=== PATIENT | female | born 1985 | race Caucasian/White ===

== ENCOUNTER 2018-03-19 02:48 | Inpatient (IN) ==
[2018-03-19 00:21] LABS: Amphetamine Screen,Urine Negative ng/mL (Cutoff=1000); Barbiturate Screen,Urine Negative ng/mL (Cutoff=200); Benzodiazepines Screen,Urine Negative ng/mL (Cutoff=200); Cannabinoid Screen,Urine Negative ng/mL (Cutoff = 50); Cocaine Screen,Urine Negative ng/mL (Cutoff= 300); Opiate Screen,Urine Negative ng/mL (Cutoff=300); Phencyclidine Screen,Urine Negative ng/mL (Cutoff=25)
[~2018-03-19 02:48] MED LIST: *HR* Nalbuphine 10 MG/ML AMPUL IVP PRN; Famotidine 20 MG/2 ML VIAL IVP PRN; Naloxone 0.4 MG/ML INJ IVP PRN; Ringers Solution, Lactated 1,000 ML IVC SCH; Ringers Solution, Lactated 1,000 ML ONE
[2018-03-19 02:54] LABS: Basophils # 0.1 K/mcL (0.0-0.2); Basophils % 0.5 %; Eosinophils # 0.2 K/mcL (0.0-0.6); Eosinophils % 1.4 %; Hematocrit 40.7 % (35.3-44.9); Hemoglobin 13.7 g/dL (11.5-15.4); Immature Granulocytes % 0.6 % (0-4); Immature Platelets 3.9 % (1.1-6.1); Lymphocytes # 2.9 K/mcL (0.6-4.6); Lymphocytes % 17.1 %; Mean Corpuscular HGB Conc 33.7 g/dL (31.6-35.5); Mean Corpuscular Hemoglobin 29.2 pg (28.0-33.3); Mean Corpuscular Volume 86.8 fL (83.0-100.0); Mean Platelet Volume 10.2 fL (9.4-12.4); Monocytes # 1.1 K/mcL (0.0-1.3); Monocytes % 6.4 %; Neutrophils # 12.6 K/mcL (1.6-8.9); Platelet Count 285 K/mcL (140-400); Red Blood Count 4.69 M/mcL (3.82-4.97); Red Cell Distribution Width 13.9 % (11.5-14.5)
[2018-03-19] MEDS ORDERED: Ondansetron 4 MG/2 ML VIAL IVP PRN (03:25)
[2018-03-19] MEDS ORDERED: Metoclopramide 10 MG/2 ML VIAL IVP PRN (03:25)
[2018-03-19] MEDS ORDERED: *HR* FentaNYL (PF) 100 MCG/2 ML VIAL EP ONE (03:28)
[2018-03-19] MEDS ORDERED: Bupivacaine-MPF 0.25% 10 ML VIAL EP ONE (03:28)
[2018-03-19] MEDS ORDERED: Epidural Premix (fent/bupiv) 110 ML EP SCH (03:30)
[2018-03-19] MEDS ORDERED: *HR* FentaNYL (PF) 100 MCG/2 ML VIAL ONE (03:34)
[2018-03-19] MEDS ORDERED: Lidocaine -MPF 2% 5 ML VIAL ONE (03:34)
[2018-03-19] MEDS ORDERED: Bupivacaine-MPF 0.25% 10 ML VIAL ONE (03:34)
[2018-03-19] MEDS ORDERED: Oxytocin 20 units/ LR 1000 mL 20 UNIT/1,000 ML BAG IVC ONE ×3 (04:17→09:05)
--- NOTE | 2018-03-19 04:22 | Anesthesia Evaluation PreOp ---
Date of Encounter: 03/19/18 Time of Encounter: 03:36 - Past History Planned Operation: labor epidural Cardiac History: Denies any Significant Hx Pulmonary History: Smoker (smokes 1/2 ppd for 30 years.), Asthma (uses inhaler. Is well-controlled, no recent attacks.) [facility] History: Denies Any Significant HX Other Medical History: Hepatic (hep C positive, history IV drug use.), Other (morbid obesity, BMI 41.) Anesthesia History: No Prior Anesthetic Complications, Past Anesthesia (wisdom teeth extracted, no problems. Previous epidural X1. States was one-sided, had to redo, BP dropped significantly. No FHAP.) Alcohol Use: none Drug use: IV Drug Use Medications and Allergies Benadryl 11/07/17 [History] Pepcid 11/07/17 [History] #103/Iron Fumarate/FA 1 tab PO DAILY 11/07/17 [History] Albuterol Sulfate [Albuterol Inhaler] 2 puff IH Q4HR PRN #1 hfa.aer.ad 01/26/18 [Rx] Colace 01/26/18 [History] Allergy/AdvReac Type Severity Reaction Status Date / Time Penicillins [PCN] AdvReac Nausea Verified 11/07/17 12:55 - Meds/Allergy Pre-op Review Medications Reviewed: Yes Allergies Reviewed: Yes Beta Blockers on Current Med List: No Anesthesia Results - Labs 03/19/18 02:38 Anesthesia Exam 122/77, 90, 20. FHTs 130s. Height: 5'7" Weight: 118kg NPO (# of Hours): 4 Pain Scale: 9 Pain Scale Used: Numeric (1 - 10) - HEENT Pupil (Motor): Pupils equal Mallampati: II Teeth: Normal Oral Opening: Greater than 3 - [facility] LOC: Oriented [facility] Motor: Normal RUE, Normal LUE, Normal RLE, Normal LLE, Normal Face [facility] Sensory: Normal: RUE, LUE, RLE, LLE, Face - Cardiac Rhythm: Regular - Pulmonary Breath Sounds: bilateral Clear Respiratory Effort: Symmetrical Anesthesia Assess/Plan ASA Score: 3 Level of consciousness: Cooperative, Oriented, Tranquil Anesthetic Plan: Epidural Monitoring Plan: Standard Monitors
--- NOTE | 2018-03-19 04:29 | Anesthesia Procedures ---
Addendum entered and electronically signed by Yuliana Funez CRNA 03/19/18 06:47: Delivery time 05 Original Note: Delivery - Delivery Date: Original Note: Date of Encounter: 03/19/18 Time of Encounter: 03:45 Procedures: Anesthesia - Epidural/Spinal Patient ID/Chart reviewed: Yes Patient examined: Yes OB Eval: : 2 OB Eval: Hx Para: 1 OB Eval: Contractions: Non-stressed pattern Consent Obtained: Yes Supplemental Oxygen: None/Room Air Site Prep: Aseptic Technique, Sterile prep and drape, Povidone-Iodine 1% Patient position: upright Local Anesthetic: Lidocaine 1% Amount of Local Anesthetic used: 5 Touhy Needle Gauge: 18 Touhy Needle Depth (cm): 8 Catheter Depth at Skin (cm): 18 Test Dose (1.5% Lido + Epi): Volume given (mls): 3 Test Dose Result: Negative Loading Dose: 0.25% Marcaine (mls): 8 Loading Dose: Fentanyl (mcg): 100 Loading Dose Administered: Thru Catheter Infusion Med: 0.125% Bupivacaine w/ 2 mcg/ml Fentanyl Infusion Rate (mls/hr): [address]: Tegaderm, Tape Interspace Used: L3-L4 Loss of Resistance (JORGE): Yes Blood: No CSF: No Paresthesia: No Vitals + FHT's: Vital Signs Time 0345 0358 0400 0405 0410 BP 122/77 155/74 142/83 139/62 131/59 Pulse 90 100 85 87 101 FHTs 130 130 130 130 130
--- NOTE | 2018-03-19 04:46 | OB/GYN History & Physical ---
Date of Encounter: 03/19/18 Time of Encounter: 04:36 Assessment and Plan (1) 39 weeks gestation of Current visit: Yes Status: Acute Admitted for labor Epidural when patient desires Pitocin augmentation if needed Anticipate (2) NST (non-stress test) reactive Current visit: Yes Status: Acute FRH 130 bpm, moderate variability, +15x15 accels, no decels. (3) Hepatitis C Current visit: Yes Status: Acute Follow-up with primary care provider . Qualifiers: Viral hepatitis chronicity: chronic Hepatic coma status: without hepatic coma Qualified Code(s): B18.2 - Chronic viral hepatitis C (4) Rh negative status during in third trimester Current visit: Yes Status: Acute (5) Meconium in amniotic fluid affecting management of mother in third trimester Current visit: Yes Status: Acute Moderate meconium noted with AROM. Nursery to attend delivery. Qualifiers: Fetus number: single or unspecified fetus Qualified Code(s): O36.8930 - Maternal care for other specified problems, third trimester, not xochilt licable or unspecified History of Present Illness Chief complaint: Labor HPI: Ms. Arango is a 32 year old female at 39 weeks and 2 days who arrives with complaints of contractions and possible fluid leakage. Her nitrazine was negative. Over the course of to 3 hours she made change from 4 cm to 6 cm therefore was admitted for labor. She endorses good movement and denies bleeding. Her has been uncomplicated but she did have positive HPV. She will be scheduled for a colposcopy . She is positive for hepatitis C and is a previous amphetamine drug user. She reports her last use was 4 months ago. Her tox screen is negative on admission. She has been seeing Rebecca Kelley throughout her . Blood type B negative GBS negative T Pall negative HBsAg negative rubella immune Varicella immune Hepatitis C positive. Viral load on 02/28/2018 was 11,354 Past Med Surg Social Fam HX - Past Medical History Medical history: non-contributory Additional medical history: HPV, Hep C Psychiatric history: anxiety, depression, PTSD - Past Surgical History Surgical History: other - Social History Smoking Status: Current every day smoker Packs per day: 1/2 Smokeless Tobacco Status: No Alcohol use: none Drug use: IV Drug Use - Family History Father Hx Family Endocrine Disorder: Yes (DM) Obstetrical History - Pregnancies : 2 Para: 1 Term: 0 : 0 Ab's: 0 Livin Medications and Allergies Benadryl 11/07/17 [History] Pepcid 11/07/17 [History] #103/Iron Fumarate/FA 1 tab PO DAILY 11/07/17 [History] Albuterol Sulfate [Albuterol Inhaler] 2 puff IH Q4HR PRN #1 hfa.aer.ad 01/26/18 [Rx] Colace 01/26/18 [History] Allergy/AdvReac Type Severity Reaction Status Date / Time Penicillins [PCN] AdvReac Nausea Verified 11/07/17 12:55 Exam - Constitutional Constitutional: well developed, well nourished - Neck Neck exam: full ROM, normal inspection - Lungs Respiratory exam: CTAB - Cardiovascular Cardiovascular exam: RRR, +S1, +S2 - Breasts Breast: bilateral: normal - Abdomen Abdomen: Present: bowel sounds normal, gravid, non tender - Extremities Extremities exam: full ROM, normal capillary refill, normal inspection, pedal edema - Vulva Vulva: bilateral: normal - Vagina Vagina: Present: normal moisture - Cervix Dilation: 8 Effacement: 90 Station: -1 - Uterus Uterus exam: Present: normal size - Anus/Rectum Anus/Rectum: Present: normal perianal skin Results Result Diagrams: 03/19/18 02:38 Abnormal lab results WBC 17.1 K/mcL (4.3-11.1) H 03/19/18 02:38 Neutrophils # 12.6 K/mcL (1.6-8.9) H 03/19/18 02:38 All other labs normal. - VTE Reasons for not Prescribing Prophylaxis: Treatment not Indicated - Low risk for VTE
[2018-03-19] MEDS ORDERED: Benzocaine/Menthol 56 GM AEROSOL SPRAY TP PRN (05:58)
--- NOTE | 2018-03-19 06:03 | OB/GYN Procedure Note ---
Delivery - Delivery Date: 03/19/18 Provider: Khushboo Escobar (Dr. Gardner in room for proctoring) Intrapartum events: meconium Delivery induction: none Delivery augmentation: rupture of membranes Delivery monitor: external FHT, external uterine Anesthesia: epidural Quantitated Blood Loss: 100 - (s) A Delivery Date: 03/19/18 Presentation: vertex Position: SANDRITA Route of delivery: Gender: Male Viability: Viable Pounds: 9 Ounces: 4 Weight Gram: 4190 kg at 1 minute: 8 at 5 mins: 9 Shoulder Dystocia: not encountered Specimens collected: cord blood Placenta: spontaneous, uterine exploration, retained (membranes, removed by Dr. Gardner) Cord: 3 umbilical vessels - Repair Episiotomy: none Laceration Description: Periurethral (Right), Perineal - 1st Degree - Complications Delivery complications: none Delivery comments: Called to room for patient feeling pressure in variable decelerations noted on monitor. Patient found to be complete and +1 station. Patient was prepped for delivery. Under maternal effort, spontaneous delivery of viable male over first-degree laceration, repaired with 3-0 Vicryl, right periurethral laceration noted, not bleeding therefore not repaired. Infant placed on maternal abdomen for drying and stimulation. Cord clamped and cut by FOB after pulsation ceased. Spontaneous delivery of placenta with trailing membranes. Manual exploration of the uterus produced a small piece of membranes. Fundus was firm bleeding was moderate, EBL 100 mL's. No nuchal cord or shoulder dystocia encountered. Moderate meconium fluid was noted. Mother and able in kangaroo care for [address] Gardner in room for entirety of delivery for proctoring and performed manual exploration of the uterus. - Disposition Mom disposition: stable in LDR disposition: stable in LDR
[2018-03-19] MEDS ORDERED: Acetaminophen 325 MG TABLET PO PRN (09:05)
[2018-03-19] MEDS ORDERED: Measles/Mumps/Rubella Vacc 0.5 ML VIAL SQ PRN (09:05)
[2018-03-19] MEDS ORDERED: Oxytocin 20 units/ LR 1000 mL 20 UNIT/1,000 ML BAG IVC SCH (09:05)
[2018-03-19] MEDS ORDERED: Prenatal Vit/FA 1 EACH TABLET PO SCH (09:05)
[2018-03-19] MEDS: Ibuprofen 600 MG TABLET PO PRN ×2 (12:56→23:29)
[2018-03-19] MEDS ORDERED: Rho Immune Globulin 1,500 UNIT SYRINGE IM ONE (17:42)
[2018-03-20 07:45] VITALS: BP 94/60
[2018-03-20] MEDS: Ibuprofen 600 MG TABLET PO PRN (10:01)
--- NOTE | 2018-03-20 10:07 | Discharge Summary ---
Date of Encounter: 03/20/18 Time of Encounter: 10:05 - Discharge Diagnosis (1) Vaginal delivery Priority: Primary Status: Acute Comments: discharge home today follow up with OB provider in 4-6 weeks - Discharge Medications Prescriptions: Ibuprofen [Motrin] 600 mg PO Q6HR PRN #60 tablet PRN Reason: Cramping Home Medications: Ibuprofen [Motrin] 600 mg PO Q6HR PRN #60 tablet 03/20/18 [Rx] Vit/FA 1 each PO DAILY tablet 03/20/18 [Rx] Allergies/Adverse Reactions: Allergy/AdvReac Type Severity Reaction Status Date / Time Penicillins [PCN] AdvReac Nausea Verified 11/07/17 12:55 Data Procedures and tests throughout hospitalization: Laboratory Tests 03/18/18 03/19/18 03/19/18 23:45 02:38 06:05 WBC 17.1 H RBC 4.69 Hgb 13.7 Hct 40.7 MCV 86.8 MCH 29.2 MCHC 33.7 RDW 13.9 Plt Count 285 MPV 10.2 Immature Gran % 0.6 Seg Neutrophils % 74.0 Lymphocytes % 17.1 Monocytes % 6.4 Eosinophils % 1.4 Basophils % 0.5 Neutrophils # 12.6 H Lymphocytes # 2.9 Monocytes # 1.1 Eosinophils # 0.2 Basophils # 0.1 Immature Plt Fraction 3.9 Urine Opiates Screen Negative Ur Barbiturates Screen Negative Ur Phencyclidine Scrn Negative Ur Amphetamines Screen Negative U Benzodiazepines Scrn Negative Urine Cocaine Screen Negative U Marijuana (THC) Screen Negative Ur Drug Screen Interp See Below Screen NEGATIVE Baby's Blood Type AB RH POSITIVE Mother's Blood Type B RH NEGATIVE Rhogam Indicated YES Rhogam Req for Mother 1 Labs on day of discharge: Labs from last 24 hours 03/19/18 06:05 Screen NEGATIVE Rhogam Req for Mother 1 Date of admission: 03/19/18 04:52 Primary care physician: PCP NONE Consults: 03/19/18 09:05 Consult to Home Performance Laborer [CONS] Routine Comment: Vaginal delivery, consult needed Consult to [employer] Operator [CONS] Routine Reason for SW Consult: h/o meth amphetamine use Discharging clinician: Katie Luna Anticipated date of discharge: 03/20/18 - Patient Status Disposition: Home, Self-Care Condition: Good Functional capacity at discharge: independent ambulation - Discharge Instructions Follow Up With: NONE,PCP [Primary Care Provider] - Alireza Blue MD [Partnered Physician] - - Diet and Activity Activity: increase activity as tolerated Diet: regular diet Hospital Course Delivery: Episiotomy: none Other procedures: none complications: none, other (retained membanes manually removed by Dr. Gardner) Discharge diagnosis: IUP at term delivered [place] baby: male (bottle feeding) Time Attestation: Total time spent providing and/or coordinating discharge services: Time Spent: Less than 30 minutes Exam - Constitutional Vitals: Temp Pulse Resp BP Pulse Ox 97.6 F 78 14 94/60 96 03/20/18 07:43 03/20/18 07:43 03/20/18 07:43 03/20/18 07:43 03/20/18 07:43 General appearance IM: A&O X 3, pleasant, answers questions appropriately - Respiratory Respiratory exam: Present: CTAB - Cardiovascular Cardiovascular exam IM: Present: RRR, +S1, +S2 - GI/Abdominal GI/Abdominal exam IM: normal bowel sounds - Uterine Tone: Firm Uterus Position: 1 Finger Below Umbilicus, Midline - Extremities Exam Extremities exam IM: Present: full ROM, normal capillary refill, normal inspection - Neurological Exam Neurological exam: alert, oriented X3, reflexes normal
[2018-03-20] MEDS ORDERED: Benzocaine/Menthol 56 GM AEROSOL SPRAY TP PRN (10:10)
== END 2018-03-20 10:44 | disposition home or self-care (01) | DRG 560 ==
LOC: 1NENULAB → 1NENUOBS 08:32
PROVIDERS: ADMIT Registered Nurse; ATTEND Registered Nurse

== ENCOUNTER → 2020-08-17 18:50 | Observation (INO) | END | disposition home or self-care (01) | LOC: 1NENULAB | PROVIDERS: ADMIT Obstetrics & Gynecology; ATTEND Obstetrics & Gynecology ==

== ENCOUNTER 2020-09-02 05:54 | Inpatient (IN) ==
[2020-09-02] MEDS ORDERED: Ringers Solution, Lactated 1,000 ML ONE (07:03)
[2020-09-02] MEDS ORDERED: EPHEDrine 50 MG/ML VIAL IVP PRN (07:10)
[2020-09-02] MEDS ORDERED: Epidural Premix (fent/bupiv) 110 ML EP SCH (07:15)
[2020-09-02] MEDS ORDERED: Metoclopramide 10 MG/2 ML VIAL IVP PRN (07:16)
[2020-09-02] MEDS ORDERED: Famotidine 20 MG/2 ML VIAL IVP PRN (07:16)
[2020-09-02] MEDS ORDERED: Naloxone 0.4 MG/ML INJ IVP PRN (07:16)
[2020-09-02] MEDS ORDERED: Ringers Solution, Lactated 1,000 ML IVC SCH (07:30)
[2020-09-02] MEDS ORDERED: Oxytocin 20 units/ LR 1000 mL 20 UNIT/1,000 ML BAG IVC SCH ×2 (07:30→15:04)
[2020-09-02 07:37] LABS: Basophils # 0.1 K/mcL (0.0-0.2); Basophils % 0.5 %; Eosinophils # 0.4 K/mcL (0.0-0.6); Eosinophils % 2.8 %; Hematocrit 38.2 % (35.3-44.9); Hemoglobin 12.3 g/dL (11.5-15.4); Immature Granulocytes % 0.5 % (0-4); Lymphocytes # 2.8 K/mcL (0.6-4.6); Lymphocytes % 19.1 %; Mean Corpuscular HGB Conc 32.2 g/dL (31.6-35.5); Mean Corpuscular Hemoglobin 29.6 pg (28.0-33.3); Mean Platelet Volume 10.9 fL (9.4-12.4); Monocytes # 0.9 K/mcL (0.0-1.3); Monocytes % 6.1 %; Neutrophils # 10.5 K/mcL (1.6-8.9); Platelet Count 273 K/mcL (140-400); Red Blood Count 4.15 M/mcL (3.82-4.97); Red Cell Distribution Width 13.1 % (11.5-14.5); White Blood Count 14.8 K/mcL (4.3-11.1)
[2020-09-02] MEDS ORDERED: Vancomycin 2,000 MG/520 ML IV.SOLN IVPB SCH (08:00)
[2020-09-02 11:46] LABS: Amphetamine Screen,Urine Negative ng/mL (Cutoff=1000); Barbiturate Screen,Urine Negative ng/mL (Cutoff=200); Benzodiazepines Screen,Urine Negative ng/mL (Cutoff=200); Cannabinoid Screen,Urine Negative ng/mL (Cutoff = 50); Cocaine Screen,Urine Negative ng/mL (Cutoff= 300); Opiate Screen,Urine Negative ng/mL (Cutoff=300); Phencyclidine Screen,Urine Negative ng/mL (Cutoff=25)
[2020-09-02] MEDS ORDERED: Acetaminophen 325 MG TABLET PO PRN (15:04)
[2020-09-02] MEDS ORDERED: Rho Immune Globulin 1,500 UNIT SYRINGE IM PRN (15:04)
[2020-09-02] MEDS ORDERED: Measles/Mumps/Rubella Vacc 0.5 ML VIAL SQ PRN (15:04)
[2020-09-02 16:13] LABS: Creatinine,Urine 89 mg/dL; Protein/Creatinine Ratio,Urine 0.19 mg/mg (0.00-0.20)
[2020-09-02 16:30] LABS: Alanine Aminotransferase 21 Units/L (7-52); Aspartate Amino Transferase 17 Units/L (13-39); BUN/Creatinine Ratio 20 (6-26); Blood Urea Nitrogen 9 mg/dL (6-20); Lactate Dehydrogenase 142 Units/L (140-271); Uric Acid 4.3 mg/dL (2.3-7.6); eGFR For African Americans > 60 (> 60); eGFR For Non-African Americans > 60 (> 60)
[2020-09-02] MEDS: FLUoxetine 20 MG CAPSULE PO SCH (17:51)
[2020-09-02] MEDS: Ibuprofen 600 MG TABLET PO PRN (18:04)
[2020-09-03] MEDS: Ibuprofen 600 MG TABLET PO PRN ×3 (04:41→17:54)
[2020-09-03 04:50] LABS: Basophils # 0.1 K/mcL (0.0-0.2); Basophils % 0.6 %; Eosinophils # 0.5 K/mcL (0.0-0.6); Eosinophils % 2.8 %; Hematocrit 32.3 % (35.3-44.9); Immature Granulocytes % 0.6 % (0-4); Lymphocytes # 3.3 K/mcL (0.6-4.6); Lymphocytes % 20.4 %; Mean Corpuscular HGB Conc 32.5 g/dL (31.6-35.5); Mean Corpuscular Hemoglobin 29.7 pg (28.0-33.3); Mean Corpuscular Volume 91.2 fL (83.0-100.0); Mean Platelet Volume 10.4 fL (9.4-12.4); Monocytes # 1.1 K/mcL (0.0-1.3); Monocytes % 6.5 %; Neutrophils # 11.2 K/mcL (1.6-8.9); Platelet Count 268 K/mcL (140-400); Red Blood Count 3.54 M/mcL (3.82-4.97); Segmented Neutrophils % 69.1 %; White Blood Count 16.3 K/mcL (4.3-11.1)
[2020-09-03 04:53] LABS: Hemoglobin 10.5 g/dL (11.5-15.4)
[2020-09-03] MEDS: Prenatal Vit/FA 1 EACH TABLET PO SCH (07:43)
[2020-09-03] MEDS: FLUoxetine 20 MG CAPSULE PO SCH (17:55)
[2020-09-04] MEDS: Prenatal Vit/FA 1 EACH TABLET PO SCH (07:26)
[2020-09-04] MEDS: Ibuprofen 600 MG TABLET PO PRN (07:26)
[2020-09-04 08:38] VITALS: BP 130/73
== END 2020-09-04 09:47 | disposition home or self-care (01) | DRG 560 ==
LOC: 1NENULAB 05:54 → 1NENUOBS 17:01
PROVIDERS: ADMIT Student in an Organized Health Care Education/Training Program; ATTEND Student in an Organized Health Care Education/Training Program